=== PATIENT | male | born 1980 | race African-American/Black ===

== ENCOUNTER → 2020-03-16 | Outpatient (CLI) | payer OTHER ==
--- NOTE | 2020-03-16 11:15 | REP ---
Right ankle series: Four views. History: Right ankle injury. Findings: Four views right ankle show an intact ankle mortise. There is a small calcification adjacent to the medial malleolus which does not appear acute. This is visible on the AP and mortise views. No fractures seen. There is mild Achilles calcaneal spurring. Impression: No acute fracture noted. Small calcific density adjacent the medial malleolus consistent with accessory ossicle or old chip fracture fragment. Electronically Signed by Arpan Lantigua MD 03/16/2020 11:06 A
== END ==
LOC: M RAD 10:30
PROVIDERS: ATTEND Surgery
DX: S99.911A Unspecified injury of right ankle, initial encounter (principal); X58.XXXA Exposure to other specified factors, initial encounter; Y92.9 Unspecified place or not applicable